=== PATIENT | male | born 1950 | race Caucasian/White ===

== ENCOUNTER 2016-12-09 04:25 | Inpatient (IN) | payer MEDICARE, OTHER ==
[2016-12-09] MEDS ORDERED: BABY ASPIRIN PO ONE (04:58)
[2016-12-09] MEDS ORDERED: ZOFRAN IV ONE (05:10)
[2016-12-09] MEDS ORDERED: MORPHINE IV ONE (05:10)
[2016-12-09] MEDS ORDERED: NITRO-BID 2% TP ONE (05:10)
[2016-12-09] MEDS ORDERED: CATAPRES PO ONE (05:11)
--- NOTE | 2016-12-09 05:16 | Emergency Department Report ---
ED Chest Pain HPI - General Chief Complaint: Chest Pain Stated Complaint: CHEST PAIN Source: patient, family, old records reviewed (no previous visit) Mode of arrival: Ambulatory Limitations: No Limitations, Language Barrier - History of Present Illness Initial Comments: 66-year-old male with a past medical history hypertension and gout presents to the hospital complaints of chest pain since 9 PM. Pain is intermittent and pressure radiating/10 in intensity. No aggravating or alleviating factors reported. Associated symptoms include shortness of breath and feeling hot. No reports of nausea, vomiting, or diaphoresis. Patient does not smoke cigarettes. No previous history of stress test or previous cardiac history. Patient does not have a primary care doctor. Patient takes losartan, nimodipine , allopurinol, and aspirin 81 mg daily and been compliant with his medication. Severity scale (0 -10): 8 - Related Data Home Medications Medication Instructions Recorded Confirmed Last Taken Allopurinol [Zyloprim] 300 mg PO QDAY 12/09/16 12/09/16 Unknown amLODIPine [Norvasc] 10 mg PO DAILY 12/09/16 12/09/16 Unknown Previous Rx's Medication Instructions Recorded Last Taken Type Aspirin 81 mg PO DAILY #30 tab.chew 12/11/16 Unknown Rx Carvedilol [Coreg] 6.25 mg PO BID #60 tablet 12/11/16 Unknown Rx Simvastatin [Zocor TAB] 40 mg PO QHS #30 tablet 12/11/16 Unknown Rx Ticagrelor [Brilinta] 90 mg PO BID #60 tablet 12/11/16 Unknown Rx Valsartan [Diovan] 160 mg PO DAILY #30 tablet 12/11/16 Unknown Rx Allergies Allergy/AdvReac Type Severity Reaction Status Date / Time No Known Allergies Allergy Verified 12/09/16 05:21 TIEN score - Tien Score Age > 65: (1) Yes Aspirin use within the Past 7 Days: (1) Yes 3 or more CAD Risk Factors: (1) Yes 2 or more Angina events in past 24 hrs: (1) Yes Known CAD with more than 50% Stenosis: (0) No Elevated Cardiac Markers: (1) Yes ST Deviation Greater than 0.5mm: (0) No TIEN Score: 5 ED Review of Systems ROS: Stated complaint: CHEST PAIN Other details as noted in HPI Comment: All other systems reviewed and negative Other: Constitutional: No fevers chills Eyes: No eye pain visual changes ENT: No ear pain or throat pain Neck: Denies pain Respiratory: Denies cough wheezing Cardiovascular: Denies palpitations, syncope GI: Denies abdominal pain, nausea, vomiting, diarrhea : Denies dysuria, urinary frequency, or urgency Musculoskeletal: Denies back pain Skin: Denies rash, lesions, erythema Neurologic: Denies headache, numbness, weakness Psychiatric: Denies suicidal ideation, hallucinations ED Past Medical Hx - Past Medical History Hx Hypertension: Yes - Surgical History Past Surgical History?: No - Social History Smoking Status: Never Smoker Substance Use Type: None - Medications Home Medications: Home Medications Medication Instructions Recorded Confirmed Last Taken Type Allopurinol [Zyloprim] 300 mg PO QDAY 12/09/16 12/09/16 Unknown History amLODIPine [Norvasc] 10 mg PO DAILY 12/09/16 12/09/16 Unknown History Aspirin 81 mg PO DAILY #30 tab.chew 12/11/16 Unknown Rx Carvedilol [Coreg] 6.25 mg PO BID #60 tablet 12/11/16 Unknown Rx Simvastatin [Zocor TAB] 40 mg PO QHS #30 tablet 12/11/16 Unknown Rx Ticagrelor [Brilinta] 90 mg PO BID #60 tablet 12/11/16 Unknown Rx Valsartan [Diovan] 160 mg PO DAILY #30 tablet 12/11/16 Unknown Rx ED Physical Exam - General Limitations: No Limitations - Other Other exam information: General: No limitations, patient is alert in no acute distress Head exam: Atraumatic, normocephalic Eyes exam: Normal appearance, pupils equal reactive to light, extraocular movements intact ENT: Moist mucous membrane, normal oropharynx Neck exam: Normal inspection, full range of motion Respiratory exam: Clear to auscultation bilateral, no wheezes, rales, crackles Cardiovascular: Normal rate and rhythm, normal heart sounds, chest wall nontender Abdomen: Soft, nondistended, and nontender, with normal bowel sounds, no rebound, or guarding Extremity: Full range of motion normal inspection no deformity, no calf tenderness or edema Back: Normal Inspection, full range of motion, no tenderness Neurologic: Alert, oriented x3, cranial nerves intact, no motor or sensory deficit Psychiatric: normal affect, normal mood Skin: Warm, dry, intact ED Course Vital Signs 12/09/16 12/09/16 12/09/16 04:43 05:34 05:53 Temperature 98.3 F Pulse Rate 72 90 90 Respiratory 20 20 Rate Blood Pressure 230/128 232/122 230/120 Blood Pressure 230/128 [Left] O2 Sat by Pulse 97 Oximetry 12/09/16 05:59 Temperature Pulse Rate Respiratory 20 Rate Blood Pressure Blood Pressure [Left] O2 Sat by Pulse 97 Oximetry - Reevaluation(s) Reevaluation #1: 12/09/16 05:14 Aspirin, nitroglycerin, morphine, Zofran, and clonidine ordered ED Medical Decision Making - Lab Data Result diagrams: 12/11/16 05:37 12/11/16 05:37 - EKG Data -: EKG Interpreted by Me (sinus rate 73, Q wave in lead 3 w/mild st elevati, lateral T wave inversion) - EKG Data When compared to previous EKG there are: previous EKG unavailable - Radiology Data Radiology results: image reviewed (chesx-ray portable: Rotated, no acute findings, read by me) - Medical Decision Making Patient will definitely need admission to the hospital for further cardiac workup and stress testing. ? mild st elevation in inf lead 3, Labs pending at my disposition. Patient informed plan for admission. Patient signout to Dr. Black to contact hospitalist once labs result is. If signs of trop elevation then stat cardiology consult will be needed. - Differential Diagnosis GA, unstable angina, PE, dissection, hypertensive emergency Critical Care Time: No Critical care attestation.: If time is entered above; I have spent that time in minutes in the direct care of this critically ill patient, excluding procedure time. ED Disposition Clinical Impression: Acute coronary syndrome, Hypertensive emergency Disposition: OP ADMITTED IP TO THIS HOSP Is pt being admited?: Yes Condition: Good Time of Disposition: 06:08 (s/o to DR black, pt will need admission once labs result)
[2016-12-09 06:19] LABS: Basophils % (Auto) 0.6 % (0.0-1.8); Eosinophils % (Auto) 5.9 % (0.0-4.3); Hematocrit 49.9 % (35.5-45.6); Hemoglobin 16.6 gm/dl (11.8-15.2); Mean Corpuscular HGB Conc 33 % (32-34); Mean Corpuscular Hemoglobin 30 pg (28-32); Mean Corpuscular Volume 91 fl (84-94); Platelet Count 233 K/mm3 (140-440); Red Blood Count 5.51 M/mm3 (3.65-5.03); Red Cell Distribution Width 14.2 % (13.2-15.2); White Blood Count 9.6 K/mm3 (4.5-11.0)
[2016-12-09 06:31] LABS: BUN/Creatinine Ratio 18.18; Blood Urea Nitrogen 20 mg/dL (9-20); Calcium 9.1 mg/dL (8.4-10.2); Carbon Dioxide 24 mmol/L (22-30); Chloride 101.1 mmol/L (98-107); Glucose 111 mg/dL (75-100); INR 0.98 (0.87-1.13); Sodium 141 mmol/L (137-145)
[2016-12-09 06:32] LABS: Partial Thromboplastin Time 29.7 Sec. (24.2-36.6)
[2016-12-09 06:33] LABS: Creatine Kinase MB 16.2 ng/mL (0.0-4.0)
[2016-12-09 06:56] LABS: Anion Gap 21 mmol/L; Potassium 4.8 mmol/L (3.6-5.0)
[2016-12-09] MEDS ORDERED: HEPARIN/ 0.45% NACL-25,000 UNIT/500 ML 25,000 UNIT/500 ML BAG IV SCH ×2 (07:00→08:00)
[2016-12-09] MEDS ORDERED: HEPARIN/ 0.45% NACL-25,000 UNIT/500 ML 25,000 UNIT/500 ML BAG ONE (07:12)
[2016-12-09] MEDS ORDERED: HEPARIN 10,000 UNITS/10 ML ONE (07:12)
[2016-12-09] MEDS ORDERED: TRIDIL DRIP 50MG/250ML 50 MG/250 ML BOTTLE ONE (07:12)
[2016-12-09 07:14] LABS: Cholesterol 256 mg/dL (50-199); HDL Cholesterol 45 mg/dL (40-59); LDL Cholesterol,Direct 167 mg/dL (50-130); Triglycerides 222 mg/dL (2-149)
[2016-12-09] MEDS ORDERED: HEPARIN 10,000 UNITS/10 ML IV ONE (07:20)
--- NOTE | 2016-12-09 07:35 | Admit Criteria Form ---
Admission Criteria Documentation: CARDIOLOGY GRG Clinical Indications for Admission to Inpatient Care ( Place 'X' for any and all applicable criteria): Hospital admission is needed for appropriate care of the patient because of ANY ONE of the following (1): [ ] I. Hemodynamic instability as indicated by ALL of the following (1)(2)(3) (4)(5) [ ]a) Vital signs or other findings not as expected for chronic patient condition or baseline [ ]b) Instability indicated by ANY ONE of the following: [ ]i) Hypotension [ ]ii) Symptomatic Tachycardia unresponsive to treatment ( e.g., analgesia, fluids, sedation as indicated) [ ]iii) Inadequate perfusion indicated by ANY ONE of the following: [ ] 1) Lactic acidosis (> 2 mmol/L) [ ] 2) New abnormal capillary refill (> 3 seconds) [ ] 3) Reduced urine output [ ] 4) New altered mental status [ ]iv) Orthostatic vital sign changes unresponsive to treatment (e.g., fluids) [ ]v) IV inotropic or vasopressor medication required to maintain adequate blood pressure or perfusion [ ] II. Severe heart failure as indicated by ANY ONE of the following(17)(18) [ ]a) Respiratory distress [ ]b) Hypotension [ ]c) Anasarca (refractory to outpatient therapy) [ ]d) Cardiac arrhythmias of immediate concern [ ]e) Myocardial ischemia [ ] III. Cardiac arrhythmias or findings of immediate concern indicated by ANY ONE of the following (19)(20): [ ] a) Heart rhythms that are inherently dangerous or unstable indicated by ANY ONE of the following (21)(22)(23): [ ] i) Resuscitated ventricular fibrillation or cardiac arrest [ ] ii) Ventricular escape rhythm [ ] iii) Sustained ventricular tachycardia (30 seconds or more of ventricular rhythm at greater than 100 beats per minute) [ ] iv) Nonsustained ventricular tachycardia and ANY ONE of the following: [ ] 1) Suspected cardiac ischemia as cause or consequence of ventricular tachycardia [ ] 2) In setting of acute myocarditis [ ] b) Unstable cardiac conduction defects indicated by ANY ONE of the following(23)(24)(25) [ ] i) Type II second-degree atrioventricular block [ ]ii) Third-degree atrioventricular block [ ]iii) New-onset left bundle branch block with suspected myocardial ischemia [ ]c) Any heart rhythm and ANY ONE of the following (21)(22)(26)(27) (28) [ ] i) Continuous long-term ECG monitoring needed (e.g., initiation of drug requiring monitoring for more than 24 hours) [ ] ii) Patient has automatic implanted cardioverter defibrillator that is repeatedly firing, malfunctioning, or in need of immediate adjustment of settings beyond the scope of ambulatory or observation care [ ]d) Heart rhythms of concern due to ANY ONE of the following: [ ] i) Hypotension [ ] ii) Respiratory distress [ ] iii) Association with other significant symptoms (e.g., bradycardia with syncope or ongoing dizziness, supraventricular tachycardia with chest pain (14)(15)(17) [ ] IV. Monitoring for cardiac contusion beyond the scope of observation care needed [A](30)(31)(32) [ ] V. Surgical or device complication (e.g., valve replacement complication , pacemaker dysfunction) (35)(41)(44)(45)(46) [ ] . Inpatient palliative care needed. [B](49) Also use Inpatient Palliative Care Criteria [ ] VII. Nonbacterial thrombotic (marantic) endocarditis (36)(43)(47)(48) [X ] VIII. Cardiology condition, symptom, or finding for which emergency and observation care has failed or are not considered appropriate. [ ] IX. Acute valvular disease requiring inpatient as indicated by ANY ONE of the following (41) [ ]a) Acute valvular regurgitation (42) [ ]b) Noninfectious valvulitis (43) [ ]c) Obstructive valve thrombosis [ ]d) Paravalvular leak [ ]e) Other significant valvular disorder remaining after emergency or observation level of care (as appropriate) [ ]X. Pericardial disease requiring inpatient treatment as indicated by ANY ONE of the following (33)(34)(35)(36)(37) [ ]a) Suspected tamponade (38)(39)(40) [ ]b) Hemopericardium [ ]c) Other significant pericardial disorder remaining after emergency or observation level of care (as appropriate) [ ] XI. Cardiac ischemia beyond scope of emergency and observation care. [ ] XII. Hypertension requiring inpatient treatment as indicated by ANY ONE of the following (6)(7)(8) [ ]a) SBP greater than 220 mm Hg or DBP greater than 120 mmHg despite treatment [ ]b) SBP greater than 140 mm Hg or DBP greater than 100 mm Hg with evidence of acute end organ damage as indicated by ANY ONE of the following [ ] i) Altered mental status [ ] ii) Acute renal failure as indicated by new onset of ANY ONE of the following (9)(10)(11)(12)(13) [ ]1) 3-fold rise in serum creatinine from baseline [ ]2) Serum creatinine greater than 4 mg/dL ( 354 micromoles/L) with acute rise greater than 0.5 mg/dL (44.2 micromoles/L) [ ]3) Reduction of more than 75% in estimated glomerular filtration rate from baseline [ ]4) Estimated glomerular filtration rate less than 35 mL/min/1.73m2 (0.59 mL/sec/1.73m2) in child up to 18 years of age [ ]5) Cessation of urine output indicated by ALL of the following [ ]A. Adequate volume status [ ]B. Inadequate urine output as indicated by ANY ONE of the following [ ]a. Urine output less than 0.3 mL/kg/hr for 24 hours [ ]b. Anuria (urine output less than 0.1 mL/kg/hr) for 12 hours [ ] iii) Aortic dissection [ ] iv) Myocardial Ischemia [ ] v) Left ventricular heart failure [ ]vi) Retinal Hemorrhage [ ]vii) Other significant finding [ ]c) Hypertension in child requiring inpatient treatment as indicated by ALL of the following(14)(15)(16) [ ] i) Outpatient treatment not effective, not available, or not appropriate [ ]ii) SBP or DBP greater than 95th percentile for age [ ]iii) Evidence of acute end organ damage as indicated by ANY ONE of the following [ ]1) Altered mental status [ ]2) Acute renal failure as indicated by new onset of ANY ONE of the following(9)(10)(11)(12)(13) [ ]A. 3-fold rise in serum creatinine from baseline [ ]B. Serum creatinine greater than 4 mg/dL (354 micromoles/L) with acute rise greater than 0.5 mg/dL (44.2 micromoles/L) [ ]C. Reduction of more than 75% in estimated glomerular filtration rate from baseline [ ]D. Estimated glomerular filtration rate less than 35 mL/min/1.73m2 (0.59 mL/sec/1.73m2) in child up to 18 years of age [ ]E. Cessation of urine output indicated by ALL of the following [ ]a. Adequate volume status [ ]b. Inadequate urine output as indicated by ANY ONE of the following [ ]i) Urine output less than 0.3 mL/kg/hr for 24 hours [ ]ii) Anuria ( urine output less than 0.1 mL/kg/hr) for 12 hours [ ]3) Severe headache [ ]4) Visual disturbance [ ]5) Retinal hemorrhage [ ]6) Other significant finding [ ]XIII. Complications of transplanted heart indicated by ANY ONE of the following(61): [ ]a) Acute graft rejection requiring inpatient management (eg, intravenous immunosuppression)(62)(63) [ ]b) Acute graft heart failure indicated by ANY ONE of the following(64): [ ]i) Hemodynamic instability [ ]ii) Cardiac arrhythmias of immediate concern [ ]iii) Pulmonary edema that is very severe (eg, mechanical ventilation needed, imminent or likely, need for 100% oxygen to keep oxygen saturation above 90%) [ ]iv) Pulmonary edema that is persistent as indicated by ALL of the following: [ ]1) New need for oxygen therapy to keep oxygen saturation above 90% (or increased FiO2 need from baseline) [ ]2) Has not improved sufficiently with emergency department or observation care IV diuretics or other heart failure treatments[E] [ ]v) Altered mental status that is severe or persistent [ ]vi) Increased creatinine (new on laboratory test) with reduction of more than 50% in estimated glomerular filtration rate from baseline [ ]vii) Progressively (ongoing) rising creatinine (known from past laboratory test) with reduction of more than 25% in estimated glomerular filtration rate from baseline [ ]viii) Acute renal failure [ ]ix) Acute peripheral ischemia (eg, examination shows pulseless, cool, mottled, or cyanotic extremity) [ ]x) Pulmonary artery catheter monitoring needed [ ]xi) Other sign or symptom of heart failure requiring inpatient treatment (ie, too severe or not responsive to outpatient and observation care treatment) [ ]c) Infection requiring inpatient management (eg, Hemodynamic instability, need for intravenous antimicrobial treatment)(66)(67)(68)(69)(70) [ ]d) Cardiac allograft vasculopathy requiring inpatient management ( eg evidence of cardiac ischemia)(71) [ ]e) Other complication of transplanted heart (eg, stroke, severe pulmonary hypertension, severe valvular dysfunction) requiring inpatient management(72) The original [facility] [employer] content created by [employer] has been revised. The portions of the content which have been revised are identified through the use of italic text or in bold, and [facility] has neither reviewed nor approved the modified material. All other unmodified content is copyright [facility] [employer]. Please see references footnoted in the original [facility] [employer] edition 2016 Admission Criteria Met: Yes
--- NOTE | 2016-12-09 07:37 | Emergency Department Report ---
ED Chest Pain HPI - General Chief Complaint: Chest Pain Stated Complaint: CHEST PAIN Source: patient, family, old records reviewed (no previous visit) Mode of arrival: Ambulatory Limitations: No Limitations - History of Present Illness Initial Comments: This is a 66-year-old male who was seen prior to my arrival by Dr. Smallwood. I was notified by nursing staff of a critical troponin of greater than 0.2. I had been occupied with the elective intubation of a another patient prior to that time. Upon notification I reviewed the patient's previous EKG which did have some subtle abnormalities. I then immediately went to the left side to update the patient's status. The patient is a Afghan-speaking gentleman who is very pleasant. Apparently he has not been caring for his blood pressure very well. He does not have a primary physician. He states that he's had chest pain since about 9 PM. He states his pain has appreciably improved with morphine and nitrates. His blood pressure was still quite elevated. We obtained a repeat EKG immediately. EKG did show some persistent abnormalities but they were less pronounced. I initiated a nitroglycerin drip, 4000 of heparin bolus and low intensity drip. Interventional Cardiology was contacted and the serial EKGs were texted. I discussed the management of the patient with Dr. Brian Ayala who agreed that the patient met criteria for urgent catheterization. Thereby the cath team was called in. Complaint: chest pain -: hour(s) Onset: during rest Pain Location: substernal Severity: moderate Quality: pressure Consistency: constant Improves With: nitroglycerin Worsens With: nothing re: nausea Treatments Prior to Arrival: other (as above described) - Related Data Home Medications Medication Instructions Recorded Confirmed Last Taken Allopurinol [Zyloprim] 300 mg PO QDAY 12/09/16 12/09/16 Unknown Aspirin 81 mg PO DAILY 12/09/16 12/09/16 Unknown Losartan [Cozaar] 50 mg PO QDAY 12/09/16 12/09/16 Unknown amLODIPine [Norvasc] 10 mg PO DAILY 12/09/16 12/09/16 Unknown Allergies Allergy/AdvReac Type Severity Reaction Status Date / Time No Known Allergies Allergy Verified 12/09/16 05:21 TIEN score - Tien Score Age > 65: (1) Yes Aspirin use within the Past 7 Days: (1) Yes 3 or more CAD Risk Factors: (1) Yes 2 or more Angina events in past 24 hrs: (1) Yes Known CAD with more than 50% Stenosis: (0) No Elevated Cardiac Markers: (1) Yes ST Deviation Greater than 0.5mm: (0) No TIEN Score: 5 ED Review of Systems ROS: Stated complaint: CHEST PAIN Other details as noted in HPI Constitutional: denies: chills, fever Eyes: denies: eye pain, eye discharge, vision change ENT: denies: ear pain, throat pain Respiratory: denies: cough, shortness of breath, wheezing Cardiovascular: chest pain. denies: palpitations Endocrine: no symptoms reported Gastrointestinal: denies: abdominal pain, nausea, diarrhea Genitourinary: denies: urgency, dysuria Musculoskeletal: denies: back pain, joint swelling, arthralgia Skin: denies: rash, lesions Neurological: denies: headache, weakness, paresthesias Psychiatric: denies: anxiety, depression Hematological/Lymphatic: denies: easy bleeding, easy bruising ED Past Medical Hx - Past Medical History Previous Medical History?: Yes Hx Hypertension: Yes - Surgical History Past Surgical History?: No - Social History Smoking Status: Never Smoker Substance Use Type: None - Medications Home Medications: Home Medications Medication Instructions Recorded Confirmed Last Taken Type Allopurinol [Zyloprim] 300 mg PO QDAY 12/09/16 12/09/16 Unknown History Aspirin 81 mg PO DAILY 12/09/16 12/09/16 Unknown History Losartan [Cozaar] 50 mg PO QDAY 12/09/16 12/09/16 Unknown History amLODIPine [Norvasc] 10 mg PO DAILY 12/09/16 12/09/16 Unknown History ED Physical Exam - General Limitations: No Limitations General appearance: alert, in no apparent distress - Head Head exam: Present: atraumatic, normocephalic - Eye Eye exam: Present: normal appearance. Absent: scleral icterus - ENT ENT exam: Present: mucous membranes moist - Neck Neck exam: Present: normal inspection - Respiratory Respiratory exam: Present: normal lung sounds bilaterally. Absent: respiratory distress - Cardiovascular Cardiovascular Exam: Present: regular rate, normal rhythm. Absent: systolic murmur, diastolic murmur, rubs, gallop - GI/Abdominal GI/Abdominal exam: Present: soft, normal bowel sounds. Absent: distended, tenderness, guarding, rebound, rigid - Rectal Rectal exam: Present: deferred - Extremities Exam Extremities exam: Present: normal inspection - Back Exam Back exam: Present: normal inspection - Neurological Exam Neurological exam: Present: alert, oriented X3, CN II-XII intact. Absent: motor sensory deficit - Psychiatric Psychiatric exam: Present: normal affect, normal mood - Skin Skin exam: Present: warm, dry, intact, normal color. Absent: rash ED Course Vital Signs 12/09/16 12/09/16 12/09/16 04:43 05:34 05:53 Temperature 98.3 F Pulse Rate 72 90 90 Respiratory 20 20 Rate Blood Pressure 230/128 232/122 230/120 Blood Pressure 230/128 [Left] O2 Sat by Pulse 97 Oximetry 12/09/16 05:59 Temperature Pulse Rate Respiratory 20 Rate Blood Pressure Blood Pressure [Left] O2 Sat by Pulse 97 Oximetry - Reevaluation(s) Reevaluation #1: hemodynamic monitoring in anticipation of cardiac cath. patient is doing well. procedure explained. pain well controlled. 12/09/16 07:39 ED Medical Decision Making - Lab Data Result diagrams: 12/09/16 05:43 12/09/16 05:43 Laboratory Results - last 24 hr 12/09/16 12/09/16 12/09/16 05:43 05:43 05:43 WBC 9.6 RBC 5.51 H Hgb 16.6 H Hct 49.9 H MCV 91 MCH 30 MCHC 33 RDW 14.2 Plt Count 233 Lymph % (Auto) 19.0 [place] % (Auto) 7.1 Eos % (Auto) 5.9 H Baso % (Auto) 0.6 Lymph # 1.8 [place] # 0.7 Eos # 0.6 H Baso # 0.1 Seg Neutrophils % 67.4 Seg Neutrophils # 6.5 PT 12.9 INR 0.98 APTT 29.7 Sodium 141 Potassium 4.8 Chloride 101.1 Carbon Dioxide 24 Anion Gap 21 BUN 20 Creatinine 1.1 Estimated GFR > 60 BUN/Creatinine Ratio 18.18 Glucose 111 H Calcium 9.1 Total Creatine Kinase CK-MB (CK-2) CK-MB (CK-2) Rel Index Troponin T 0.221 H* Triglycerides 222 H Cholesterol 256 H LDL Cholesterol Direct 167 H HDL Cholesterol 45 Cholesterol/HDL Ratio 5.68 12/09/16 05:43 WBC RBC Hgb Hct MCV MCH MCHC RDW Plt Count Lymph % (Auto) [place] % (Auto) Eos % (Auto) Baso % (Auto) Lymph # [place] # Eos # Baso # Seg Neutrophils % Seg Neutrophils # PT INR APTT Sodium Potassium Chloride Carbon Dioxide Anion Gap BUN Creatinine Estimated GFR BUN/Creatinine Ratio Glucose Calcium Total Creatine Kinase 263 H CK-MB (CK-2) 16.2 H CK-MB (CK-2) Rel Index 6.1 H Troponin T Triglycerides Cholesterol LDL Cholesterol Direct HDL Cholesterol Cholesterol/HDL Ratio Critical Care Time: Yes Critical care time in (mins) excluding proc time.: 40 Critical care attestation.: If time is entered above; I have spent that time in minutes in the direct care of this critically ill patient, excluding procedure time. ED Disposition Clinical Impression: Acute coronary syndrome, Hypertensive emergency Disposition: OP ADMITTED IP TO THIS HOSP Is pt being admited?: Yes Does the pt Need Aspirin: Yes Condition: Stable Instructions: Hypertension (ED) Referrals: PRIMARY CARE, [Primary Care Provider] - 3-5 Days Time of Disposition: 07:41
[2016-12-09 07:53] LABS: Hematocrit 47.9 % (35.5-45.6)
[2016-12-09] MEDS ORDERED: TRIDIL DRIP 50MG/250ML 50 MG/250 ML BOTTLE IV SCH (08:00)
[2016-12-09] MEDS ORDERED: HEPARIN/NS 5000 UNIT/500ML(CATH LAB) 1,000 ML IR ONE (08:07)
[2016-12-09] MEDS ORDERED: XYLOCAINE 2% INFILTRATI ONE (08:08)
[2016-12-09] MEDS ORDERED: NITROGLYCERIN SYRINGE 3 ML ONE (08:08)
[2016-12-09] MEDS ORDERED: CALAN ONE (08:08)
--- NOTE | 2016-12-09 08:11 | XRay Report ---
FINAL REPORT PROCEDURE: XR CHEST 1V AP TECHNIQUE: Chest radiograph anteroposterior view. CPT 74733 HISTORY: cp COMPARISON: No prior studies are available for comparison. FINDINGS: Heart: Normal. Mediastinum/Vessels: Normal. Lungs/Pleural space: The right hemidiaphragm is slightly elevated. No evidence of an acute consolidation, effusion or pneumothorax.. Bony thorax: No acute osseous abnormality. Life support devices: None. IMPRESSION: No acute cardiopulmonary abnormality.
[2016-12-09 08:19] LABS: INR 1.06 (0.87-1.13)
[2016-12-09] MEDS ORDERED: NACL 0.9% 500 ML 500 ML ONE (08:35)
[2016-12-09] MEDS: SUBLIMAZE ONE ×2 (08:43→09:10)
[2016-12-09] MEDS: VERSED ONE ×2 (08:43→09:09)
[2016-12-09] MEDS: HEPARIN 10,000 UNITS/10 ML ONE ×4 (08:48→09:45)
[2016-12-09 08:58] LABS: Partial Thromboplastin Time 159.4 Sec. (24.2-36.6)
[2016-12-09] MEDS ORDERED: HEPARIN/NS 5000 UNIT/500ML(CATH LAB) 500 ML IR ONE (08:59)
[2016-12-09] MEDS ORDERED: APRESOLINE ONE (09:02)
[2016-12-09] MEDS ORDERED: BRILINTA ONE (09:35)
[2016-12-09] MEDS ORDERED: ALUM-MAG HYDROX-SIMETH 200-200-20MG/5ML ONE (09:35)
[2016-12-09] MEDS ORDERED: TRIDIL DRIP 50MG/250ML 50 MG/250 ML BOTTLE IV ONE (09:45)
--- NOTE | 2016-12-09 09:57 | History and Physical Report ---
History of Present Illness Date of examination: 12/09/16 Date of admission: 12/09/16 Chief complaint: Cgest pain History of present illness: Patient with history of HTN presented to the hospital for chest pain. Spontaneous onset of chest pain that has been on going since last night. No prior cardiac history. Does have a history of HTN and his BP was significantly elevated on arrival to the hospital. Patient was started on NTG drip with gradual improvement of his BP. EKG showed some subtle ST elevation in ole[place] III only and had q waves. In vies of the ongoing chest pain patient was taken to the carpenter/labor. Patient was chest pain free on arrival to the carpenter/labor [facility] due to good control of his BP. Cardiac cath revealed COMMERCIAL PLUMBER on OM3 with mid LCx 80% stenosis. Patient underwent PCI of the OM and is being admitted for further care. Past History Past Medical History: hypertension Past Surgical History: No surgical history Social history: no significant social history Family history: no significant family history Medications and Allergies Allergies Allergy/AdvReac Type Severity Reaction Status Date / Time No Known Allergies Allergy Verified 12/09/16 05:21 Home Medications Medication Instructions Recorded Confirmed Last Taken Type Allopurinol [Zyloprim] 300 mg PO QDAY 12/09/16 12/09/16 Unknown History Aspirin 81 mg PO DAILY 12/09/16 12/09/16 Unknown History Losartan [Cozaar] 50 mg PO QDAY 12/09/16 12/09/16 Unknown History amLODIPine [Norvasc] 10 mg PO DAILY 12/09/16 12/09/16 Unknown History Active Meds: Active Medications Allopurinol (Zyloprim) 300 mg PO QDAY [facility] Amlodipine Besylate (Norvasc) 10 mg PO DAILY [facility] Aspirin (Baby Aspirin) 81 mg PO QDAY [facility] Atorvastatin Calcium (Lipitor) 80 mg PO QHS [facility] Carvedilol (Coreg) 6.25 mg PO BID [facility] Famotidine (Pepcid) 20 mg PO BID [facility] Heparin Sodium/Sodium Chloride (Heparin/ 0.45% Nacl-25,000 Unit/500 Ml) 25,000 unit in 500 mls @ 20 mls/hr IV TITRATE WALLY; 1,000 UNITS/HR PRN Reason: Protocol Nitroglycerin/Dextrose (Tridil Drip 50mg/250ml) 50 mg in 250 mls @ 3 mls/hr IV TITR WALLY; 10 MCG/MIN PRN Reason: Protocol Sodium Chloride (Nacl 0.45% 1000 Ml) 1,000 mls @ 42 mls/hr IV DIRECT WALLY Nitroglycerin/Dextrose (Tridil Drip 50mg/250ml) 50 mg in 250 mls @ 3 mls/hr IV TITR ONE; 10 MCG/MIN PRN Reason: Protocol Stop: 12/12/16 21:04 Losartan Potassium (Cozaar) 50 mg PO QDAY [facility] Losartan Potassium (Cozaar) 50 mg PO QDAY [facility] Ticagrelor (Brilinta) 90 mg PO BID [facility] Zolpidem Tartrate (Ambien) 5 mg PO QHS PRN PRN Reason: Sleep Review of Systems All systems: negative Physical Examination Vital Signs Temp Pulse Resp BP Pulse Ox 98.3 F 72 20 230/128 97 12/09/16 04:43 12/09/16 04:43 12/09/16 04:43 12/09/16 04:43 12/09/16 04:43 General appearance: no acute distress HEENT: Positive: Normocephaly Neck: Positive: neck supple Cardiac: Positive: Reg Rate and Rhythm, Regular Rate, S1/S2 Lungs: Positive: Normal Exam Neuro: Positive: Grossly Intact Abdomen: Positive: Unremarkable Male genitourinary: Positive: deferred Skin: Positive: Clear Extremities: Present: normal Results 12/09/16 07:30 12/09/16 05:43 Cardiac Enzymes 12/09/16 Range/Units 05:43 CK-MB (CK-2) 16.2 H (0.0-4.0) ng/mL Coagulation 12/09/16 12/09/16 Range/Units 05:43 07:30 PT 12.9 13.7 (12.2-14.9) Sec. INR 0.98 1.06 (0.87-1.13) APTT 29.7 159.4 H* (24.2-36.6) Sec. Lipids 12/09/16 Range/Units 05:43 Triglycerides 222 H (2-149) mg/dL Cholesterol 256 H (50-199) mg/dL HDL Cholesterol 45 (40-59) mg/dL Cholesterol/HDL Ratio 5.68 % CBC 12/09/16 12/09/16 Range/Units 05:43 07:30 WBC 9.6 (4.5-11.0) K/mm3 RBC 5.51 H (3.65-5.03) M/mm3 Hgb 16.6 H 16.0 H (11.8-15.2) gm/dl Hct 49.9 H 47.9 H (35.5-45.6) % Plt Count 233 202 (140-440) K/mm3 Lymph # 1.8 (1.2-5.4) K/mm3 [place] # 0.7 (0.0-0.8) K/mm3 Eos # 0.6 H (0.0-0.4) K/mm3 Baso # 0.1 (0.0-0.1) K/mm3 Comprehensive Metabolic Panel 12/09/16 Range/Units 05:43 Sodium 141 (137-145) mmol/L Potassium 4.8 (3.6-5.0) mmol/L Chloride 101.1 (98-107) mmol/L Carbon Dioxide 24 (22-30) mmol/L BUN 20 (9-20) mg/dL Creatinine 1.1 (0.8-1.5) mg/dL Glucose 111 H (75-100) mg/dL Calcium 9.1 (8.4-10.2) mg/dL EKG interpretations - Telemetry EKG Rhythm: Sinus Rhythm (Inferior Q waves. Lateral T wave inverion) Assessment and Plan !. NSTEMI S/P PCI of the mid LCx with resolute GILDA 2. CAD COMMERCIAL PLUMBER of the OM2, moderate mid LAD and diffuse disease of a small diagonal 3. Hypertensive urgency Plan Aspirin/brilinta High intensity statins Aggressive treatment of HTN Gradually wean nitor drip Compliance stressed , will get assistance of [facility] brilinta use
[2016-12-09] MEDS ORDERED: NACL 0.45% 1000 ML 1,000 ML IV SCH (10:00)
[2016-12-09] MEDS ORDERED: COZAAR PO SCH (10:00)
[2016-12-09] MEDS ORDERED: ALUM-MAG HYDROX-SIMETH 200-200-20MG/5ML PO PRN (10:25)
[2016-12-09] MEDS ORDERED: MILK OF MAGNESIA PO PRN (10:25)
[2016-12-09] MEDS ORDERED: DULCOLAX PR PRN (10:25)
[2016-12-09] MEDS: BABY ASPIRIN PO SCH (11:41)
[2016-12-09] MEDS: NORVASC PO SCH (11:48)
[2016-12-09] MEDS: ZYLOPRIM PO SCH (11:49)
[2016-12-09] MEDS: PEPCID PO SCH ×2 (11:50→21:46)
[2016-12-09] MEDS: COZAAR PO SCH (11:53)
[2016-12-09] MEDS: COREG PO SCH ×3 (11:58→21:50)
--- NOTE | 2016-12-09 15:21 | Cardiac Catherization Report ---
CORONARY ANGIOGRAM AND PERCUTANEOUS INTERVENTION REPORT PROCEDURE PERFORMED: 1. Selective left and right coronary angiogram. 2. Left ventriculogram. 3. Percutaneous intervention of the mid circumflex. SENIOR TECHNICAL SUPPORT ANALYST: Isacc Ayala MD INDICATION: Acute coronary syndrome/non-ST elevation AK. SEDATION: Moderate sedation with Versed and fentanyl. SPECIMENS REMOVED: None. BLOOD LOSS: Minimal. PROCEDURE DETAILS: 1. The patient was prepped and draped in a sterile fashion after informed consent. 2. The right groin was anesthetized using local Lidocaine infiltration. 3. The right radial artery was entered using the Seldinger technique, followed by the placement of a 6-Pashto sheath. 4. Selective left and right coronary angiography was performed using 6-Pashto Shiv catheters. Angiograms were done in multiple projections. 5. Selective left ventricular angiography was done using a 6-Pashto pigtail catheter. Left ventricular angiography was performed in the right anterior oblique projection. 6. The catheters were withdrawn, the sheath removed, and hemostasis was achieved. 7. The patient was transferred to the post cardiac catheterization unit in stable condition. There were no complications, equipment malfunction, or technical difficulties. FINDINGS: HEMODYNAMICS: 1. AO is 170/90, LV is 173/21, LVEDP is 28. no significant gradient across the aortic valve. 2. Left ventriculogram done in 30-degree [place] projection shows preserved LV systolic function, EF greater than 55%. ANGIOGRAM DETAILS: 1. Left main is angiographically normal. 2. LAD has an eccentric 40-50% mid stenosis. Diagonal 2 is a 1.5 mm vessel with 70-80% mid stenosis. 3. The circumflex is a tortuous calcified vessel. After giving off a small insignificant OM1, there is a calcified 80% stenosis of the obtuse circumflex and then it trifurcates into 3 branches. The middle branch is occluded at the ostium. 4. The RCA is a large caliber vessel with luminal irregularities, no stenosis greater than 30%. Faint collaterals are seen filling the OM. IMPRESSION: 1. Critical coronary artery disease including 80% mid stenosis and 100% occlusion of the OM3. 2. Moderate nonobstructive stenosis of the LAD with small diffuse disease of the small diagonal. 3. Preserved LV systolic function. PLAN: Proceed with PCI of the circumflex/OM. PERCUTANEOUS INTERVENTION DETAILS: Intravenous heparin was used to maintain therapeutic ACT and XB 3.5 guide catheter was used to engage the left main coronary artery. Several wires were used, but we were unable to cross the lesion at the ostium of the OM3. In view of the collaterals and the calcifications, it appears that this lesion was chronic total occlusion. We decided to proceed with PCI of the mid circumflex. After initial predilatation, a 2.75 x 18 Resolute drug-eluting stent was deployed. The mid circumflex extending across the OM2 and OM3. This was then postdilated with a 3.0 noncompliant balloon. There is a dynamic showed excellent results with no compromise of the branches and TIEN 3 flow. The patient tolerated the procedure and was chest pain free at the end of the procedure. The patient was given 180 mg of Brilinta. The patient tolerated the procedure well. IMPRESSION: Status post successful percutaneous intervention of the mid circumflex with the deployment of 2.75 x 18 mm Resolute drug-eluting stent. PLAN: 1. Aspirin for life. 2. Brilinta for 1 year, preferably more. 3. Routine adjuvant pharmacotherapy post PCI. 4. The ostial OM appears to be chronic total occlusion, would treat this medically. 5. Routine radial artery sheath care. JOB# [id number] MING/CHARLENE
[2016-12-09] MEDS: AMBIEN PO PRN (21:44)
[2016-12-09] MEDS: BRILINTA PO SCH (21:44)
[2016-12-10 05:57] LABS: Basophils % (Auto) 0.6 % (0.0-1.8); Eosinophils % (Auto) 3.1 % (0.0-4.3); Hematocrit 47.9 % (35.5-45.6); Hemoglobin 15.8 gm/dl (11.8-15.2); Mean Corpuscular HGB Conc 33 % (32-34); Mean Corpuscular Hemoglobin 30 pg (28-32); Mean Corpuscular Volume 91 fl (84-94); Platelet Count 216 K/mm3 (140-440); Red Blood Count 5.25 M/mm3 (3.65-5.03); Red Cell Distribution Width 13.9 % (13.2-15.2); White Blood Count 12.5 K/mm3 (4.5-11.0)
[2016-12-10 06:21] LABS: Creatine Kinase MB 32.2 ng/mL (0.0-4.0)
[2016-12-10 06:24] LABS: BUN/Creatinine Ratio 14.16; Blood Urea Nitrogen 17 mg/dL (9-20); Calcium 9.1 mg/dL (8.4-10.2); Carbon Dioxide 23 mmol/L (22-30); Glucose 130 mg/dL (75-100)
[2016-12-10 06:25] LABS: Anion Gap 19 mmol/L; Chloride 101.3 mmol/L (98-107); Creatine Kinase 280 units/L (55-170); Potassium 4.5 mmol/L (3.6-5.0); Sodium 139 mmol/L (137-145)
--- NOTE | 2016-12-10 09:12 | XRay Report ---
Chest: Compared to 12/09/16. History: Post PCI. Findings: Cardiomegaly due to trachea is midline. Elevated right diaphragm. No consolidation, pneumothorax or pleural effusion. No significant interval change. Impression: No significant interval change. The
[2016-12-10] MEDS: TRIDIL DRIP 50MG/250ML 50 MG/250 ML BOTTLE IV SCH ×2 (09:30→10:37)
[2016-12-10] MEDS: ZYLOPRIM PO SCH (10:30)
[2016-12-10] MEDS: BABY ASPIRIN PO SCH (10:31)
[2016-12-10] MEDS: BRILINTA PO SCH ×2 (10:31→21:15)
[2016-12-10] MEDS: COZAAR PO SCH (10:31)
[2016-12-10] MEDS: COREG PO SCH ×2 (10:33→21:16)
[2016-12-10] MEDS: NORVASC PO SCH (10:33)
[2016-12-10] MEDS: PEPCID PO SCH ×2 (10:33→21:16)
[2016-12-10] MEDS ORDERED: PNEUMOVAX 23 IM ONE (10:55)
[2016-12-10] MEDS ORDERED: FLUARIX QUAD 2016-2017(36 MOS+) IM ONE (10:55)
--- NOTE | 2016-12-10 13:34 | Progress Note ---
Assessment and Plan NSTEMI s/p PCI of the mid LCx with resolute GILDA preserved EF on [facility] Hypertension Plan Aspirin/brilinta, statin and beta eileen therapy. Aggressive treatment of HTN. Will transfer to telemetry. Subjective Date of service: 12/10/16 Interval history: Patient has no chest pain or shortness of breath. BP not optimal. Currently with a systolic BP of 168. Objective Vital Signs Temp Pulse Pulse Resp BP Pulse Ox 12/10/16 12:00 98.1 F 12/10/16 10:41 66 12 160/91 96 12/10/16 10:33 65 175/88 12/10/16 10:31 65 175/88 12/10/16 10:30 66 12 160/91 96 12/10/16 10:21 67 13 164/88 97 12/10/16 10:11 73 13 164/88 97 12/10/16 10:00 70 12 164/88 96 12/10/16 09:51 66 15 159/83 95 12/10/16 09:42 96 12/10/16 09:41 70 15 159/83 97 12/10/16 09:30 64 13 159/83 99 12/10/16 09:21 63 17 158/88 97 12/10/16 09:11 64 15 158/88 96 12/10/16 09:00 66 15 158/88 97 12/10/16 08:51 66 17 175/85 94 12/10/16 08:41 65 15 175/85 96 12/10/16 08:30 69 14 175/85 95 12/10/16 08:21 68 15 198/97 93 12/10/16 08:11 72 19 198/97 94 12/10/16 08:01 69 12 198/97 95 12/10/16 08:00 98 F 12/10/16 07:51 72 17 173/86 95 12/10/16 07:41 64 20 173/86 95 12/10/16 07:30 64 16 163/84 95 12/10/16 07:21 70 19 173/86 95 12/10/16 07:11 80 14 173/86 94 12/10/16 07:00 67 18 173/86 95 12/10/16 06:51 67 16 183/97 94 12/10/16 06:41 63 15 183/97 94 04/17/17 06:30 67 15 183/97 94 17/17 06:21 64 16 158/84 94 17/17 06:11 64 15 158/84 94 17 06:00 64 16 158/84 94 17/17 05:51 66 16 180/96 94 12/10/17 05:41 65 16 180/96 95 17/17 05:31 173/89 93 17 05:00 65 17 173/89 96 17 04:51 68 16 174/95 97 12/10/17 04:41 66 16 165/87 95 12/10/17 04:31 63 15 165/87 95 12/10/17 04:21 64 29 H 137/69 94 17 04:11 64 30 H 149/83 94 17/17 04:00 69 68 19 149/83 95 17 03:51 72 18 142/86 94 17 03:41 63 14 171/96 94 17 03:30 67 17 171/96 95 17 03:27 64 29 H 137/69 94 17 03:21 62 15 158/72 94 17/17 03:11 63 21 155/97 93 17 03:00 67 17 155/97 96 17 02:51 62 14 138/69 93 12/10/17 02:41 63 15 153/66 93 12/10/17 02:31 65 14 153/66 92 17 02:21 65 14 176/75 94 17 02:11 87 12 187/85 92 17 02:00 66 67 27 H 187/85 96 17 01:51 62 16 172/80 96 17/17 01:41 63 22 190/100 96 17/17 01:30 65 16 190/100 95 17/17 01:21 61 14 160/93 96 17/17 01:11 64 14 170/90 95 12/10/17 01:01 68 18 170/90 94 17/17 00:51 78 15 140/67 96 1717 00:41 74 18 148/74 95 1717 00:30 66 15 148/74 94 04/17/17 00:21 64 15 132/70 95 12/10/16 00:11 66 16 162/87 96 12/10/16 00:01 68 28 H 162/87 97 12/10/16 00:00 67 12/09/16 23:51 70 15 136/91 94 12/09/16 23:41 65 14 158/77 94 12/09/16 23:31 67 11 L 158/77 97 12/09/16 23:21 61 17 167/105 95 12/09/16 23:11 64 14 138/86 95 12/09/16 23:01 63 15 138/86 95 12/09/16 22:51 66 15 148/85 95 12/09/16 22:41 67 14 173/92 96 12/09/16 22:30 70 16 173/92 97 12/09/16 22:21 67 18 152/79 96 12/09/16 22:11 66 18 173/87 96 12/09/16 22:00 67 16 173/87 96 12/09/16 21:51 68 17 177/88 98 12/09/16 21:50 67 173/93 12/09/16 21:41 68 18 172/86 97 12/09/16 21:30 66 15 172/86 94 12/09/16 21:21 68 20 190/99 97 12/09/16 21:13 70 15 195/105 97 12/09/16 21:11 70 18 195/105 94 12/09/16 20:51 69 12 149/84 97 12/09/16 20:45 149/84 12/09/16 20:41 70 16 156/79 95 12/09/16 20:30 80 18 156/79 94 12/09/16 20:21 76 13 155/75 96 12/09/16 20:11 82 14 161/77 95 12/09/16 20:00 78 60 13 161/77 95 12/09/16 19:51 72 15 177/93 95 12/09/16 19:41 73 19 218/122 97 12/09/16 19:31 78 11 L 194/94 94 12/09/16 19:21 69 15 194/94 97 12/09/16 19:11 70 12 194/94 98 12/09/16 19:01 70 12 191/151 98 12/09/16 18:51 69 15 109/63 98 12/09/16 18:41 72 14 120/58 97 12/09/16 18:31 63 11 L 120/58 98 12/09/16 18:21 58 L 13 120/58 97 12/09/16 18:11 58 L 13 120/58 96 12/09/16 18:00 60 13 109/63 96 12/09/16 17:50 61 13 120/58 96 12/09/16 17:41 60 14 120/58 96 12/09/16 17:31 62 16 120/58 97 12/09/16 17:21 61 13 120/58 96 12/09/16 17:11 58 L 14 120/58 94 12/09/16 17:01 57 L 15 120/58 95 12/09/16 16:51 57 L 14 140/77 95 12/09/16 16:41 60 15 140/77 96 12/09/16 16:31 57 L 15 140/77 96 12/09/16 16:21 57 L 15 140/77 96 12/09/16 16:11 56 L 15 140/77 95 12/09/16 16:00 98.1 F 56 L 16 140/77 95 12/09/16 15:51 54 L 17 158/93 95 12/09/16 15:41 59 L 14 158/93 94 12/09/16 15:31 56 L 13 158/93 96 12/09/16 15:29 69 165/86 12/09/16 15:21 65 15 158/93 95 12/09/16 15:11 60 15 158/93 94 12/09/16 15:00 69 19 158/93 95 12/09/16 14:51 68 13 140/73 96 12/09/16 14:41 64 17 140/73 95 12/09/16 14:31 68 18 140/73 95 12/09/16 14:21 70 19 171/87 95 12/09/16 14:11 70 13 164/83 97 12/09/16 14:01 72 16 164/83 97 12/09/16 14:00 69 59 L 165/86 12/09/16 13:51 80 17 136/74 97 12/09/16 13:41 66 15 136/74 97 - Physical Examination General: No Apparent Distress Cardiac: Positive: Reg Rate and Rhythm Lungs: Positive: Decreased Breath Sounds Neuro: Positive: Grossly Intact Extremities: Present: normal - Labs and Meds Cardiac Enzymes 12/10/16 Range/Units 05:31 CK-MB (CK-2) 32.2 H (0.0-4.0) ng/mL CBC 12/10/16 Range/Units 05:31 WBC 12.5 H (4.5-11.0) K/mm3 RBC 5.25 H (3.65-5.03) M/mm3 Hgb 15.8 H (11.8-15.2) gm/dl Hct 47.9 H (35.5-45.6) % Plt Count 216 (140-440) K/mm3 Lymph # 1.6 (1.2-5.4) K/mm3 [place] # 0.8 (0.0-0.8) K/mm3 Eos # 0.4 (0.0-0.4) K/mm3 Baso # 0.1 (0.0-0.1) K/mm3 Comprehensive Metabolic Panel 12/10/16 Range/Units 05:31 Sodium 139 (137-145) mmol/L Potassium 4.5 (3.6-5.0) mmol/L Chloride 101.3 (98-107) mmol/L Carbon Dioxide 23 (22-30) mmol/L BUN 17 (9-20) mg/dL Creatinine 1.2 (0.8-1.5) mg/dL Glucose 130 H (75-100) mg/dL Calcium 9.1 (8.4-10.2) mg/dL
[2016-12-10] MEDS: TYLENOL PO PRN ×2 (13:44→22:37)
[2016-12-10] MEDS ORDERED: COZAAR PO SCH (21:00)
[2016-12-10] MEDS: AMBIEN PO PRN (21:16)
[2016-12-11] MEDS ORDERED: CATAPRES PO PRN (01:20)
[2016-12-11 06:10] LABS: Hematocrit 47.9 % (35.5-45.6); Hemoglobin 15.9 gm/dl (11.8-15.2)
[2016-12-11 06:31] LABS: Anion Gap 18 mmol/L; BUN/Creatinine Ratio 15.83; Blood Urea Nitrogen 19 mg/dL (9-20); Calcium 8.8 mg/dL (8.4-10.2); Carbon Dioxide 23 mmol/L (22-30); Chloride 99.5 mmol/L (98-107); Glucose 120 mg/dL (75-100); Potassium 4.3 mmol/L (3.6-5.0); Sodium 136 mmol/L (137-145)
[2016-12-11 10:08] VITALS: BP 185/91
--- NOTE | 2016-12-11 10:24 | Discharge Summary ---
Providers - Providers Date of Admission: 12/09/16 09:46 Date of discharge: 12/11/16 Attending physician: SEAN MCLEOD 12/09/16 Consult to Cardiac Rehabilitation [CONS] Routine Reason For Exam: post pci Consult to Cardiac Rehabilitation [CONS] Routine Reason For Exam: post pci 12/09/16 10:26 Consult to Dietitian/Nutrition [CONS] Routine Physician Instructions: Reason For Exam: Reason for Consult: Diet education Primary care physician: FINANCE AND ADMINISTRATION MANAGER Hospitalization Condition: Good Hospital course: Patient with history of HTN presented to the hospital for chest pain. Blood was significantly elevated on arrival to the hospital. Patient was started on NTG drip with gradual improvement of his BP. His EKG showed some subtle ST elevation. In view of the ongoing chest pain patient was taken to the calibration laboratory technician. Cardiac cath revealed mid LCx stenosis which was treated with a resolute drug eluting stent. Ejection fraction of 55% on coronary angiogram. Post PCI patient has remained chest pain free. Patient was gradually weaned off NTG drip and his blood pressure has been treated aggressively with oral medications. Patient also noted to have a mild increase of random blood glucose of 120. He will be recommended to see his PCP in the outpatient setting, for close monitoring, further evaluation and therapy if needed for what appears to be borderline diabetes. Patient will be discharged home today and instructed to continue current medications to include Brilinta and asprin. Follow up with [facility] as schedule December 19. Disposition: DISCHARGED TO HOME OR SELFCARE Core Measure Documentation - Palliative Care Palliative Care/ Comfort Measures: Not Applicable - Core Measures Any of the following diagnoses?: acute [place] - Acute [place] Discharge Requirements Aspirin at discharge: Yes DIO/ARB for LVSD if EF <40%: Yes Beta eileen at discharge: Yes Statin for LDL = or >100 mg/dl on DC: Yes Exam - Constitutional Vitals: Temp Pulse Resp BP Pulse Ox 98.2 F 64 16 185/91 96 12/11/16 08:45 12/11/16 05:12 12/11/16 08:45 12/11/16 08:45 12/11/16 08:54 General appearance: Present: no acute distress - EENT Eyes: Present: PERRL ENT: hearing intact - Neck Neck: Present: normal ROM - Respiratory Respiratory effort: normal - Cardiovascular Rhythm: regular Heart Sounds: Present: S1 & S2 - Psychiatric Psychiatric: appropriate mood/affect Plan Activity: advance as tolerated Diet: low fat, low cholesterol, low salt Follow up with: PRIMARY CAREMD [Primary Care Provider] - 3-5 Days SEAN MCLEOD MD [Staff Physician] - 7 Days Prescriptions: Simvastatin [Zocor TAB] 40 mg PO QHS #30 tablet Aspirin 81 mg PO DAILY #30 tab.chew Carvedilol [Coreg] 6.25 mg PO BID #60 tablet Ticagrelor [Brilinta] 90 mg PO BID #60 tablet Valsartan [Diovan] 160 mg PO DAILY #30 tablet
[2016-12-11] MEDS: BRILINTA PO SCH (10:34)
[2016-12-11] MEDS: BABY ASPIRIN PO SCH (10:35)
[2016-12-11] MEDS: PEPCID PO SCH (10:35)
[2016-12-11] MEDS: ZYLOPRIM PO SCH (10:35)
[2016-12-11] MEDS: COREG PO SCH (10:37)
[2016-12-11] MEDS: NORVASC PO SCH (10:37)
[2016-12-11] MEDS ORDERED: DIOVAN PO SCH (11:00)
== END 2016-12-11 14:11 | disposition home or self-care (01) | DRG 247 ==
LOC: CATH 04:25 → ED 04:25 → EDSTATUS 09:00 → CC1 09:46 → 4A 12-10 15:44
PROVIDERS: ADMIT Internal Medicine Cardiovascular Disease; ATTEND Internal Medicine Cardiovascular Disease
PROC: 027034Z Dilation of Coronary Artery, One Artery with Drug-eluting Intraluminal Device, Percutaneous Approach (ICD-10-PCS; principal; 2016-12-09)
PROC: B2111ZZ Fluoroscopy of Multiple Coronary Arteries using Low Osmolar Contrast (ICD-10-PCS; 2016-12-09)
PROC: B2151ZZ Fluoroscopy of Left Heart using Low Osmolar Contrast (ICD-10-PCS; 2016-12-09)
PROC: 4A023N7 Measurement of Cardiac Sampling and Pressure, Left Heart, Percutaneous Approach (ICD-10-PCS; 2016-12-09)
PROC: 3E0234Z Introduction of Serum, Toxoid and Vaccine into Muscle, Percutaneous Approach (ICD-10-PCS; 2016-12-10)
DX: I21.4 Non-ST elevation (NSTEMI) myocardial infarction (principal); I16.1 Hypertensive emergency; I10 Essential (primary) hypertension; M10.9 Gout, unspecified; I25.10 Atherosclerotic heart disease of native coronary artery without angina pectoris; Z79.82 Long term (current) use of aspirin; Z23 Encounter for immunization
CPT/HCPCS: 36415; 71010; 80048; 80061; 82550; 82553; 84484; 85014; 85018; 85025; 85049; 85347; 85610; 85730; 90686; 90732; 92928; 93005; 93010; 93458; A9270-GY; C1725; C1769; C1874; C1887; C1894; C9600; J0360; J1644; J2250; J2270; J2405; J3010; J7040; Q9967